=== PATIENT | female | born 1985 | race African-American/Black ===

== ENCOUNTER 2021-05-27 14:21 | Inpatient (IN) | payer OTHER ==
[2021-05-27 15:09] LABS: #Eosinphils 0.1 10x3/uL (0.0-0.5); #Monocytes 0.3 10x3/uL (0.0-1.1); #Neutrophils 4.6 10x3/uL (1.5-8.4); %Basophils 0.2 % (0.0-2.0); %Eosinophils 0.8 % (0.0-6.0); %Lymphocytes 23.3 % (18.0-47.0); %Neutrophils 71.5 % (40.0-75.0); Hemoglobin 12.2 g/dL (12.0-15.5); Mean Corpuscular HGB CONC 32.4 g/dL (32.0-36.0); Mean Corpuscular Hemoglobin 26.5 pg (27.0-33.0); Mean Corpuscular Volume 81.6 fl (81.6-98.3); Mean Platelet Volume 10.6 fl (7.4-10.4); Platelet Count 230 10x3/uL (150-450); RBC Distribution Width 13.6 % (11.5-14.5); Red Blood Cell (RBC) Count 4.61 10x6/uL (3.90-5.03); White Blood Cell (WBC) Count 6.5 10x3/uL (3.5-10.5)
[2021-05-27] MEDS ORDERED: Mag-Al Plus 1200 MG/1200 MG/120 MG/30 ML UDCUP ONE (15:11)
[2021-05-27] MEDS ORDERED: Lidocaine Viscous Sol 2% 15 ml UD Cup ONE (15:11)
[2021-05-27 15:12] LABS: BHCG - Serum Negative (NEGATIVE); Pregs Control Background? CLEAR/WHITE (CLR/WHITE); Pregs Control Bar Appear? YES (CONTROL BAR)
[2021-05-27] MEDS ORDERED: Nitroglycerin 2% Ointment 1 INCH/1 GM Packet ONE (15:12)
[2021-05-27 15:19] LABS: ALT (SGPT) 12 U/L (8-55); AST (SGOT) 11 U/L (5-34); Alkaline Phosphatase 86 U/L (40-110); Anion Gap 12 mmol/L (10-20); BUN (Urea Nitrogen) 9 mg/dL (7.0-18.7); Bilirubin, Total 0.4 mg/dL (0.2-1.2); CK (CPK) 122 U/L (29-168); Calc. Creatinine Clearance 0 mL/min (70-130); Carbon Dioxide 25 mmol/L (22-29); Chloride 105 mmol/L (98-107); Globulin 2.7 g/dL (2.4-3.5); Glucose 160 mg/dL (70-105); Lipase 47 U/L (8-78); Potassium 3.5 mmol/L (3.5-5.1); Protein, Total 6.7 g/dL (6.0-8.3); Sodium 138 mmol/L (136-145)
[2021-05-27 16:59] LABS: CKMB 2.5 ng/mL (0-6.6)
[2021-05-27] MEDS ORDERED: Enoxaparin Sodium 100 MG/ML SYRINGE ONE (17:12)
[2021-05-27] MEDS ORDERED: Morphine 4 MG/ML VIAL ONE (17:27)
[2021-05-27] MEDS ORDERED: Nitroglycerin 0.4 MG TAB (25 Tab Bottle) SL PRN (18:04)
[2021-05-27] MEDS ORDERED: Ondansetron PF 4 MG/2 ML Vial IVP PRN (18:04)
[2021-05-27] MEDS ORDERED: Acetaminophen 650 MG Suppository PR PRN (18:04)
[2021-05-27] MEDS ORDERED: Ondansetron ODT 4 MG TAB PO PRN (18:04)
[2021-05-27] MEDS ORDERED: Dextrose 5% in Water 1,000 ML IV PRN (18:08)
[2021-05-27] MEDS ORDERED: Dextrose 50% Abboject 50 ML SYRINGE SLOW IVP PRN (18:08)
[2021-05-27] MEDS ORDERED: HumaLOG 300 UNITS/3 ML VIAL SC PRN ×2 (18:08)
[2021-05-27 19:16] LABS: Troponin I 8.334 ng/mL (< 0.028)
[2021-05-27 20:56] VITALS: BMI 50.1
[2021-05-27] MEDS ORDERED: Aspirin Chewable 81 MG TAB PO SCH (21:30)
[2021-05-27] MEDS: Metoprolol Tartrate 25 MG TAB PO SCH (21:34)
[2021-05-27] MEDS: Atorvastatin Calcium 40 MG TAB PO SCH (21:34)
[2021-05-28 06:42] LABS: Mean Corpuscular HGB CONC 32.7 g/dL (32.0-36.0); Mean Corpuscular Volume 82.7 fl (81.6-98.3); Mean Platelet Volume 10.8 fl (7.4-10.4); Platelet Count 218 10x3/uL (150-450); RBC Distribution Width 13.8 % (11.5-14.5); Red Blood Cell (RBC) Count 4.44 10x6/uL (3.90-5.03)
[2021-05-28 06:58] LABS: MDiff Complete? YES
[2021-05-28 06:59] LABS: Anion Gap 11 mmol/L (10-20); BUN (Urea Nitrogen) 10 mg/dL (7.0-18.7); Calc. Creatinine Clearance 254 mL/min (70-130); Calcium 8.8 mg/dL (7.8-10.44); Carbon Dioxide 24 mmol/L (22-29); Chloride 108 mmol/L (98-107); Cholesterol 130 mg/dl (< 200 Desired); Glucose 101 mg/dL (70-105); HDL Cholesterol 26 mg/dL (>60 Neg Risk); LDL Cholesterol, Calculated 71 mg/dL; Potassium 3.9 mmol/L (3.5-5.1); Sodium 139 mmol/L (136-145); Triglycerides 164 mg/dL (Less than 150)
[2021-05-28 07:02] LABS: Lymphocytes 34 % (21-51); Monocytes 9 % (0-10); Neutrophil 48 % (42-75); Reactive Lymphocytes 9 % (0-10)
[2021-05-28 07:06] LABS: Platelet Morphology Comment Appears Adequate
[2021-05-28 07:07] LABS: RBC Morphology Normal
[2021-05-28] MEDS ORDERED: Enoxaparin Sodium 80 MG/0.8 ML SYRINGE SC SCH (09:00)
[2021-05-28] MEDS ORDERED: Enoxaparin Sodium 60 MG/0.6 ML SYRINGE SC SCH (09:00)
[2021-05-28] MEDS: Aspirin 81 mg Enteric Coated Tablet PO SCH (09:25)
[2021-05-28] MEDS: Metoprolol Tartrate 25 MG TAB PO SCH ×2 (09:29→20:47)
[2021-05-28] MEDS ORDERED: clonazePAM 1 MG TAB PO PRN (09:30)
[2021-05-28 12:31] LABS: Hemoglobin A1c 5.5 % (4.0-6.0)
[2021-05-28 15:34] LABS: SARS-CoV-2 PCR by NAA Not Detected (NotDetected)
[2021-05-28] MEDS ORDERED: Heparin 10,000 UNITS/ 10 ML VIAL ONE (16:46)
[2021-05-28] MEDS ORDERED: Lidocaine 1% (PF) 30 ML VIAL ONE (16:46)
[2021-05-28] MEDS ORDERED: Nitroglycerin 50 MG/250 ML BOT 250 ML ONE (16:46)
[2021-05-28] MEDS ORDERED: Adenosine 6 MG/2 ML VIAL ONE (16:47)
[2021-05-28] MEDS ORDERED: Fentanyl 100 MCG/2 ML VIAL ONE (16:47)
[2021-05-28] MEDS ORDERED: Midazolam HCl 2 mg/2 ml Vial ONE (16:48)
[2021-05-28] MEDS ORDERED: Ondansetron PF 4 MG/2 ML Vial IVP SCH (17:15)
[2021-05-28] MEDS ORDERED: TICAGRELOR 90 MG TABLET ONE (18:54)
[2021-05-28] MEDS: Atorvastatin Calcium 40 MG TAB PO SCH (20:47)
[2021-05-28] MEDS: Hydroxychloroquine Sulfate 200 MG TAB PO SCH (20:47)
[2021-05-28] MEDS: Acetaminophen 325 MG TAB PO PRN (20:52)
[2021-05-28] MEDS: Sodium Chloride 0.9% 1,000 ML IV SCH (20:54)
[2021-05-29] MEDS: Acetaminophen 325 MG TAB PO PRN (05:09)
[2021-05-29] MEDS: Sodium Chloride 0.9% 1,000 ML IV SCH (05:10)
[2021-05-29 05:21] LABS: ALT (SGPT) 15 U/L (8-55); AST (SGOT) 26 U/L (5-34); Albumin 3.7 g/dL (3.5-5.0); Alkaline Phosphatase 81 U/L (40-110); Anion Gap 11 mmol/L (10-20); BUN (Urea Nitrogen) 10 mg/dL (7.0-18.7); Bilirubin, Total 0.2 mg/dL (0.2-1.2); Calc. Creatinine Clearance 232 mL/min (70-130); Calcium 8.4 mg/dL (7.8-10.44); Carbon Dioxide 24 mmol/L (22-29); Chloride 108 mmol/L (98-107); Globulin 2.3 g/dL (2.4-3.5); Glucose 111 mg/dL (70-105); Potassium 3.8 mmol/L (3.5-5.1); Sodium 139 mmol/L (136-145)
[2021-05-29 06:11] LABS: Hemoglobin 12.1 g/dL (12.0-15.5); MDiff Complete? YES; Mean Corpuscular Hemoglobin 27.1 pg (27.0-33.0); Mean Corpuscular Volume 82.3 fl (81.6-98.3); Mean Platelet Volume 10.9 fl (7.4-10.4); Platelet Count 221 10x3/uL (150-450); RBC Distribution Width 13.5 % (11.5-14.5); Red Blood Cell (RBC) Count 4.46 10x6/uL (3.90-5.03); White Blood Cell (WBC) Count 4.8 10x3/uL (3.5-10.5)
[2021-05-29] MEDS ORDERED: HYDROcodone/Acetaminophen 5/325 mg Tablet PO SCH (06:15)
[2021-05-29 06:17] LABS: Band 1 % (5-11); Lymphocytes 39 % (21-51); Monocytes 4 % (0-10); Neutrophil 52 % (42-75); Reactive Lymphocytes 3 % (0-10)
[2021-05-29 06:18] LABS: Platelet Morphology Comment Appears Adequate; RBC Morphology Normal
[2021-05-29] MEDS: Aspirin 81 mg Enteric Coated Tablet PO SCH (08:44)
[2021-05-29] MEDS: Hydroxychloroquine Sulfate 200 MG TAB PO SCH (08:44)
[2021-05-29] MEDS: Metoprolol Tartrate 25 MG TAB PO SCH (08:44)
[2021-05-29] MEDS ORDERED: Folic Acid 1 MG TAB PO SCH (09:00)
[2021-05-29] MEDS ORDERED: Amlodipine 5 MG TAB PO SCH (09:00)
[2021-05-29] MEDS ORDERED: Clopidogrel Bisulfate 75 MG TAB PO SCH (09:00)
[2021-05-29] MEDS ORDERED: Acetaminophen/Codeine 30-300mg Tablet PO PRN (10:51)
[2021-05-29 12:45] VITALS: BP 118/63; TEMP 97.7
[2021-05-30] MEDS ORDERED: Spironolactone 25 MG TAB PO SCH (09:00)
[2021-05-30] MEDS ORDERED: Atorvastatin Calcium 10 MG TAB PO SCH (09:00)
[2021-06-02] MEDS ORDERED: Methotrexate Sodium 2.5 MG TAB PO SCH (09:00)
== END 2021-05-29 12:45 | disposition home or self-care (01) | DRG 246 ==
LOC: CSHERS 14:21 → CSHTELE 14:22
PROVIDERS: ADMIT Family Medicine; ATTEND Internal Medicine
PROC: 027034Z Dilation of Coronary Artery, One Artery with Drug-eluting Intraluminal Device, Percutaneous Approach (ICD-10-PCS; principal; 2021-05-28)
PROC: 4A023N7 Measurement of Cardiac Sampling and Pressure, Left Heart, Percutaneous Approach (ICD-10-PCS; 2021-05-28)
PROC: B2151ZZ Fluoroscopy of Left Heart using Low Osmolar Contrast (ICD-10-PCS; 2021-05-28)
PROC: B2111ZZ Fluoroscopy of Multiple Coronary Arteries using Low Osmolar Contrast (ICD-10-PCS; 2021-05-28)
PROC: B241ZZ3 Ultrasonography of Multiple Coronary Arteries, Intravascular (ICD-10-PCS; 2021-05-28)
DX: I21.4 Non-ST elevation (NSTEMI) myocardial infarction (principal); I50.43 Acute on chronic combined systolic (congestive) and diastolic (congestive) heart failure; Z68.43 Body mass index [BMI] 50.0-59.9, adult; Z20.822 Contact with and (suspected) exposure to COVID-19; E78.5 Hyperlipidemia, unspecified; E11.9 Type 2 diabetes mellitus without complications; I25.10 Atherosclerotic heart disease of native coronary artery without angina pectoris; F41.9 Anxiety disorder, unspecified; F25.9 Schizoaffective disorder, unspecified; E66.01 Morbid (severe) obesity due to excess calories; I11.0 Hypertensive heart disease with heart failure; M32.9 Systemic lupus erythematosus, unspecified; F17.210 Nicotine dependence, cigarettes, uncomplicated; Z88.2 Allergy status to sulfonamides; Z88.8 Allergy status to other drugs, medicaments and biological substances; Z79.899 Other long term (current) drug therapy; Z90.89 Acquired absence of other organs
CPT/HCPCS: 36415; 36416; 71045; 71275; 80048; 80053; 80061; 82550; 82553; 83036; 83690; 84484; 84703; 85025; 92928; 92978; 92979; 93005; 93010; 93306; 93458; 94760; 97139; 99152; 99153; C1725; C1753; C1874; C1887; C9600; J0153; J1644; J1650; J2001; J2250; J2270; J2405; J3010; J7050; U0003; U0005